=== PATIENT | female | born 1950 | race Caucasian/White ===

== ENCOUNTER 2019-06-03 19:07 | Emergency (ER) | payer OTHER, MEDICAID ==
[~2019-06-03] VITALS: Ht 162.6 cm; Wt 77.1 kg
[2019-06-03 19:15] VITALS: BP 188/64
--- NOTE | 2019-06-03 19:15 | NUR ---
PT WHEELCHAIRED TO BED #11
[2019-06-03] MEDS ORDERED: HYDROcodone/APAP 5/325 MG 1 TAB TAB PO ONE (19:30)
--- NOTE | 2019-06-03 19:35 | NUR ---
RT ANKLE PAIN X THIS AM. SEEN AT [facility] AND [facility]. MEDHX- HLYD, HTN, DM NKA
--- NOTE | 2019-06-03 19:35 | NUR ---
XRAY AT BEDSIDE.
[2019-06-03 21:09] VITALS: BP 175/87
--- NOTE | 2019-06-03 21:09 | NUR ---
Note bryan in EDM - 06/03/19 at 2110 by [facility] Patient discharged with v/s stable. Written and verbal after care instructions given and explained. Patient verbalized understanding. Ambulatory with steady gait. All questions addressed prior to discharge. Advised to follow up with PMD.
== END 2019-06-03 21:09 | disposition home or self-care (01) ==
LOC: MED 19:07
DX: M25.571 Pain in right ankle and joints of right foot (principal)
CPT/HCPCS: 29515; 73590; 73610; 73630; 99284; Q0092